=== PATIENT | female | born 1990 | race Hispanic/Latino ===

== ENCOUNTER 2016-11-25 13:25 | Emergency (ER) | payer OTHER ==
[~2016-11-25] VITALS: Ht 165.1 cm; Wt 77.1 kg
[~2016-11-25 13:25] MED LIST: PERCOCET 325 MG1 TA2 PO
[2016-11-25 16:41] VITALS: BP 119/61
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
[2016-11-25] MEDS ORDERED: AUGMENTIN 875-1 EACH PO (17:04)
== END 2016-11-25 17:07 ==
LOC: ERH 13:25
DX: S01.511A Laceration without foreign body of lip, initial encounter (principal); S51.852A Open bite of left forearm, initial encounter; S21.051A Open bite of right breast, initial encounter; S00.81XA Abrasion of other part of head, initial encounter; S10.91XA Abrasion of unspecified part of neck, initial encounter; Y04.1XXA Assault by human bite, initial encounter; Y92.9 Unspecified place or not applicable
CPT/HCPCS: 90471; 90714